=== PATIENT | female | born 1975 | race Hispanic/Latino ===

== ENCOUNTER → 2020-02-19 | Outpatient (CLI) | payer BC ==
--- NOTE | 2020-02-19 11:19 | Diagnostic Imaging Report ---
Pelvic ultrasound. History: Left ovarian cyst. Comparison: None available. Discussion: Transabdominal and transvaginal evaluation of the pelvis was performed in the transverse and longitudinal planes. The uterus is absent. The right ovary measures 2.5 x 1.4 x 1.9 cm. The left ovary measures 2.7 x 2.1 x 2.1 cm and contains a subcentimeter benign-appearing follicle. There is no evidence of an adnexal mass. There is no evidence of free fluid. IMPRESSION: Normal pelvic ultrasound status post hysterectomy. Signed by: Mario Irwin on 02/19/2020 11:16 AM
== END ==
LOC: US 09:44
PROVIDERS: ATTEND Family Medicine
DX: Z12.31 Encounter for screening mammogram for malignant neoplasm of breast (principal); N83.202 Unspecified ovarian cyst, left side
CPT/HCPCS: 76830; 76856; 77067

== ENCOUNTER → 2020-08-14 | Outpatient (CLI) | payer BC ==
--- NOTE | 2020-08-15 08:39 | Diagnostic Imaging Report ---
#[id number] - [id number] #UNILATERAL LEFT DIGITAL DIAGNOSTIC MAMMOGRAM WITH CAD: 08/14/2020 CLINICAL: Palpable lump left breast. Comparison is made to exams dated: 02/19/2020 mammogram - [facility] and 12/11/2010 mammogram - [facility]. Current study contains 6 films. The tissue of the left breast is heterogeneously dense. This may lower the sensitivity of mammography. Current study was also evaluated with a Computer Aided Detection (CAD) system. Benign appearing calcifications are noted in the left breast, including benign stable calcified oil cyst/fat necrosis which corresponds to the palpable region. No significant masses, calcifications, or other findings are seen in the breast. IMPRESSION: BENIGN There is no mammographic evidence of malignancy. A 1 year screening mammogram is recommended. The patient will be notified by letter of the results. KAILEE OROZCO M.D. ct/penrad:08/14/2020 16:07:09 [employer]: Joelle DE LA ROSA(Suzie)(Debi), [facility] letter sent: Normal Exam Mammogram BI-RADS: 2 Benign
== END ==
LOC: MAMMO 12:55
PROVIDERS: ATTEND Student in an Organized Health Care Education/Training Program
DX: N64.4 Mastodynia (principal)